=== PATIENT | female | born 1990 | race Caucasian/White ===

== ENCOUNTER 2018-02-03 07:07 | Emergency (ER) | payer OTHER ==
[~2018-02-03] VITALS: Ht 170.2 cm; Wt 90.7 kg
[~2018-02-03 07:07] MED LIST: BIRTH CONTROL PILLS; CEPH500 PO; CIPR500 PO; ESCI10; IBUP200; MEDR150I IM; MULVITA PO; NITR100CA PO; PHENA200 PO; RXPHEN200 PO; SULTRIDS PO; TRAZ50
[2018-02-03] MEDS ORDERED: CETI5 PO (08:04)
[2018-02-03] MEDS ORDERED: Zofran4 MG PO (08:27)
[2018-02-03] MEDS ORDERED: Norco 5-325 Ta1 EACH PO (08:27)
[2018-02-03] MEDS ORDERED: PSEU120ER PO (08:27)
== END 2018-02-03 09:04 | disposition home or self-care (01) ==
LOC: ER 07:07
DX: J02.9 Acute pharyngitis, unspecified (principal)
CPT/HCPCS: 87081; 87430; 99283

== ENCOUNTER 2018-03-23 08:42 | Emergency (ER) | payer OTHER ==
[~2018-03-23] VITALS: Ht 170.2 cm; Wt 90.7 kg
[~2018-03-23 08:42] MED LIST changes: +CETI5 PO; +Norco 5-325 Ta1 EACH PO; +PSEU120ER PO; +Zofran4 MG PO
[2018-03-23] MEDS ORDERED: PENVK500 PO (08:56)
== END 2018-03-23 09:20 | disposition home or self-care (01) ==
LOC: ER 08:42
DX: J02.9 Acute pharyngitis, unspecified (principal); F17.210 Nicotine dependence, cigarettes, uncomplicated; Z79.2 Long term (current) use of antibiotics
CPT/HCPCS: 96372; 99283; J1100; J1885

== ENCOUNTER → 2019-05-20 | Outpatient (CLI) | payer OTHER ==
[~2019-05-20] MED LIST changes: +PENVK500 PO
[2019-05-21 09:59] LABS: Candida species (DNA Probe) Positive (NEGATIVE); G. vaginalis (DNA Probe) Negative (NEGATIVE); T. vaginalis (DNA Probe) Negative (NEGATIVE)
[2019-05-22 13:06] LABS: HPV 16 Negative (Negative); HPV 18 Negative (Negative); HPV OTHER HR TYPES Negative (Negative)
== END ==
LOC: LAB 10:58 → LAB SHORT 10:58
PROVIDERS: Nurse Practitioner Family
DX: Z12.4 Encounter for screening for malignant neoplasm of cervix (principal); N89.8 Other specified noninflammatory disorders of vagina
CPT/HCPCS: 87480; 87510; 87624; 87660; G0145

== ENCOUNTER → 2019-06-20 | Outpatient (CLI) | payer OTHER | END | disposition home or self-care (01) | LOC: LAB SHORT 12:39 → LAB EV 12:39 | DX: N39.0 Urinary tract infection, site not specified (principal) | CPT/HCPCS: 87077; 87086; 87186 ==

== ENCOUNTER 2019-11-03 19:56 | Emergency (ER) | payer OTHER ==
[~2019-11-03] VITALS: Ht 170.2 cm; Wt 87.5 kg
[2019-11-03 20:38] LABS: BASOPHILS ABSOLUTE AUTO 0.02 K/mm3 (0.00-0.23); BASOPHILS PERCENT AUTO 0 % (0-2); EOSINOPHILS ABSOLUTE AUTO 0.29 K/mm3 (0.00-0.68); EOSINOPHILS PERCENT AUTO 4 % (0-6); Hematocrit 32.8 % (33.0-51.0); IMMATURE GRAN ABSOLUTE AUTO 0.03 K/mm3 (0.00-0.10); IMMATURE GRAN PERCENT AUTO 0 % (0-1); LYMPHOCYTES ABSOLUTE AUTO 1.08 K/mm3 (0.84-5.20); LYMPHOCYTES PERCENT AUTO 14 % (21-46); MONOCYTES ABSOLUTE AUTO 0.64 K/mm3 (0.16-1.47); MONOCYTES PERCENT AUTO 8 % (4-13); Mean Corpuscular HGB 32.1 pg (26.0-34.0); Mean Corpuscular HGB Conc 33.5 g/dL (31.5-36.5); Mean Corpuscular Volume 96 fL (80-100); Mean Platelet Volume 11.3 fL (9.1-12.4); NEUTROPHILS ABSOLUTE AUTO 5.75 K/mm3 (1.96-9.15); NEUTROPHILS PERCENT AUTO 74 % (41-73); Platelet Count 224 K/mm3 (150-400); RDW Coefficient Variation 12.6 % (11.7-14.2); RDW Standard Deviation 44.3 fL (35.1-46.3); Red Blood Cell Count 3.43 M/mm3 (3.80-5.20); White Blood Cell Count 7.81 K/mm3 (4.00-11.30)
[2019-11-03 20:57] LABS: Alanine Aminotransfer (ALT/SGP 13 U/L (12-78); Albumin, Blood 2.7 g/dL (3.4-5.0); Albumin/Globulin Ratio 0.6 (0.8-1.8); Alk Phos 96 U/L (50-136); Anion Gap 8 mmol/L (6-16); Aspartate Aminotrans (AST/SGOT 15 U/L (12-37); Bilirubin, Total 0.2 mg/dL (0.1-1.0); Blood Urea Nitrogen 3 mg/dL (8-24); CO2, Blood 22 mmol/L (21-32); Calcium, Blood 8.5 mg/dL (8.5-10.1); Chloride, Blood 108 mmol/L (98-108); Creatinine, Blood 0.38 mg/dL (0.40-1.00); Globulin, Blood 4.2 g/dL (2.2-4.0); Glomerular Filtration Rate >60 (60-); Glucose, Blood 79 mg/dL (70-99); Potassium, Blood 3.5 mmol/L (3.5-5.5); Sodium, Blood 138 mmol/L (136-145); Total Protein, Blood 6.9 g/dL (6.4-8.2)
[2019-11-03] MEDS ORDERED: PRED20 PO (22:40)
[2019-11-03] MEDS ORDERED: ALBU90OI INH (22:40)
== END 2019-11-03 22:56 | disposition home or self-care (01) ==
LOC: ER 19:56
PROVIDERS: Emergency Medicine
DX: O99.512 Diseases of the respiratory system complicating pregnancy, second trimester (principal); J45.909 Unspecified asthma, uncomplicated; O99.332 Smoking (tobacco) complicating pregnancy, second trimester; F17.210 Nicotine dependence, cigarettes, uncomplicated; Z3A.27 27 weeks gestation of pregnancy
CPT/HCPCS: 36415; 71260; 80053; 85025; 85379; 94640; 96360-59; 96361; 99285-25; J7120; J7512; Q9967

== ENCOUNTER 2020-01-28 04:50 | Inpatient (IN) | payer OTHER ==
[~2020-01-28] VITALS: Ht 170.2 cm; Wt 92.7 kg
[~2020-01-28 04:50] MED LIST changes: +ALBU90OI INH; +PRED20 PO
[2020-01-28 05:41] LABS: BASOPHILS ABSOLUTE AUTO 0.01 K/mm3 (0.00-0.23); BASOPHILS PERCENT AUTO 0 % (0-2); EOSINOPHILS ABSOLUTE AUTO 0.04 K/mm3 (0.00-0.68); EOSINOPHILS PERCENT AUTO 1 % (0-6); Hematocrit 33.9 % (33.0-51.0); Hemoglobin 11.3 g/dL (11.5-16.0); IMMATURE GRAN ABSOLUTE AUTO 0.03 K/mm3 (0.00-0.10); IMMATURE GRAN PERCENT AUTO 0 % (0-1); LYMPHOCYTES ABSOLUTE AUTO 0.85 K/mm3 (0.84-5.20); LYMPHOCYTES PERCENT AUTO 11 % (21-46); MONOCYTES ABSOLUTE AUTO 0.75 K/mm3 (0.16-1.47); MONOCYTES PERCENT AUTO 10 % (4-13); Mean Corpuscular HGB 30.7 pg (26.0-34.0); Mean Corpuscular HGB Conc 33.3 g/dL (31.5-36.5); Mean Corpuscular Volume 92 fL (80-100); Mean Platelet Volume 12.1 fL (9.1-12.4); NEUTROPHILS ABSOLUTE AUTO 5.76 K/mm3 (1.96-9.15); NEUTROPHILS PERCENT AUTO 78 % (41-73); Platelet Count 214 K/mm3 (150-400); RDW Coefficient Variation 13.5 % (11.7-14.2); RDW Standard Deviation 45.9 fL (35.1-46.3); Red Blood Cell Count 3.68 M/mm3 (3.80-5.20); White Blood Cell Count 7.44 K/mm3 (4.00-11.30)
--- NOTE | 2020-01-28 16:23 | NUR ---
REPORT TO SUSAN SOLOMON
--- NOTE | 2020-01-28 16:30 | NUR ---
ASSUMED PT CARE, RESTING IN BED, JUST WAS UP TO VOID. DECLINES ANYTHING FOR PAIN.
--- NOTE | 2020-01-28 19:17 | NUR ---
REPORT TO ONCOMING SHIFT, NO ACUTE CHANGES.
[2020-01-29 06:38] LABS: BASOPHILS ABSOLUTE AUTO 0.03 K/mm3 (0.00-0.23); BASOPHILS PERCENT AUTO 0 % (0-2); EOSINOPHILS ABSOLUTE AUTO 0.12 K/mm3 (0.00-0.68); EOSINOPHILS PERCENT AUTO 2 % (0-6); Hematocrit 28.6 % (33.0-51.0); Hemoglobin 9.3 g/dL (11.5-16.0); IMMATURE GRAN ABSOLUTE AUTO 0.05 K/mm3 (0.00-0.10); IMMATURE GRAN PERCENT AUTO 1 % (0-1); LYMPHOCYTES ABSOLUTE AUTO 1.95 K/mm3 (0.84-5.20); LYMPHOCYTES PERCENT AUTO 29 % (21-46); MONOCYTES ABSOLUTE AUTO 0.73 K/mm3 (0.16-1.47); MONOCYTES PERCENT AUTO 11 % (4-13); Mean Corpuscular HGB 30.2 pg (26.0-34.0); Mean Corpuscular HGB Conc 32.5 g/dL (31.5-36.5); Mean Corpuscular Volume 93 fL (80-100); NEUTROPHILS ABSOLUTE AUTO 3.93 K/mm3 (1.96-9.15); NEUTROPHILS PERCENT AUTO 58 % (41-73); Platelet Count 201 K/mm3 (150-400); RDW Coefficient Variation 13.8 % (11.7-14.2); RDW Standard Deviation 46.9 fL (35.1-46.3); Red Blood Cell Count 3.08 M/mm3 (3.80-5.20); White Blood Cell Count 6.81 K/mm3 (4.00-11.30)
--- NOTE | 2020-01-29 09:00 | NUR ---
MOTHER REMAINS ASLEEP. WILL ASSESS WHEN AWAKE. FATHER AWAKE AND CARING FOR BABY INDEPENDANTLY.
--- NOTE | 2020-01-29 13:40 | NUR ---
1300 DISCHARGE HOME STABLE. VERBALIZES UNDERSTANDING OF DC INSTRUCTIONS AND FOLLOW UP APPOINTMENTS. NO QUESTIONS OR CONCERNS.
== END 2020-01-29 13:05 | disposition home or self-care (01) | DRG 807 ==
LOC: OBS 04:50 → BC 04:50 → OBS 05:15 → BC 05:16
PROVIDERS: ADMIT Nurse Practitioner Obstetrics & Gynecology
PROC: 10E0XZZ Delivery of Products of Conception, External Approach (ICD-10-PCS; principal; 2020-01-28)
PROC: 10907ZC Drainage of Amniotic Fluid, Therapeutic from Products of Conception, Via Natural or Artificial Opening (ICD-10-PCS; 2020-01-28)
PROC: 3E0R3BZ Introduction of Anesthetic Agent into Spinal Canal, Percutaneous Approach (ICD-10-PCS; 2020-01-28)
DX: O99.824 Streptococcus B carrier state complicating childbirth (principal); Z37.0 Single live birth; Z3A.39 39 weeks gestation of pregnancy; O99.334 Smoking (tobacco) complicating childbirth; F17.200 Nicotine dependence, unspecified, uncomplicated; O99.42 Diseases of the circulatory system complicating childbirth; I34.0 Nonrheumatic mitral (valve) insufficiency; O35.9XX0 Maternal care for (suspected) fetal abnormality and damage, unspecified, not applicable or unspecified; O77.0 Labor and delivery complicated by meconium in amniotic fluid; O69.89X0 Labor and delivery complicated by other cord complications, not applicable or unspecified
CPT/HCPCS: 36415; 51702; 85025; 86850; 86900; 86901; J0290; J1885; J2001; J2210; J2590; J3010; J7120

== ENCOUNTER 2020-05-13 06:14 | Day surgery (SDC) | payer OTHER ==
[~2020-05-13] VITALS: Ht 170.2 cm; Wt 81.2 kg
[~2020-05-13 06:14] MED LIST changes: +ZYRTEC10 M2 PO
--- NOTE | 2020-05-13 07:10 | NUR ---
05/13/20 0710 Aundrea Juan 2 IV ATTEMPTS BY [facility], 1ST IN L HAND WAS PAINFUL FOR PATIENT AND ATTEMPT WAS STOPPED, 2ND IN LAC WAS SUCCESSFUL
--- NOTE | 2020-05-13 09:37 | NUR ---
05/13/20 0937 Melani Ventura PT REPORTED "MILDLY ACHEY BELLY" THAT WAS TOLERABLE DURING STEP DOWN. PT TOLERATED PO FLUIDS AND SNACKS WELL. PT ARRIVED TO STEP DOWN WITH SWELLING TO THE LEFT UPPER LIP. NO OPEN WOUNDS SEEN ON LIP. PT STATED THAT IT WAS TOLERABLE; RN EXPLAINED HOW SOMETIMES THE LIPS CAN GET "BUMPED INTO" DURING INTUBATION. RN WENT OVER DISCHARGE INSTRUCTIONS UNTIL ALL QUESTIONS WERE ANSWERED. PT WILL BE SENT HOME WITH WRITTEN COPIES AND RX. PT'S RIDE CALLED; MESSAGE LEFT.
== END 2020-05-13 09:42 | disposition home or self-care (01) ==
LOC: ORSCSDS 06:14
PROVIDERS: Obstetrics & Gynecology
PROC: 0UT74ZZ Resection of Bilateral Fallopian Tubes, Percutaneous Endoscopic Approach (ICD-10-PCS; principal; 2020-05-13 07:30)
DX: Z30.2 Encounter for sterilization (principal); Q50.5 Embryonic cyst of broad ligament; N80.3 Endometriosis of pelvic peritoneum
CPT/HCPCS: 88302; J0694; J1100; J1885; J2001; J2250; J2405; J2704; J3010; J7120

== ENCOUNTER → 2020-08-25 | Outpatient (CLI) | payer OTHER | END | disposition home or self-care (01) | LOC: LAB EV 17:47 → LAB SHORT 17:47 | DX: R06.00 Dyspnea, unspecified (principal); Z20.828 Contact with and (suspected) exposure to other viral communicable diseases | CPT/HCPCS: U0003 ==

== ENCOUNTER → 2022-04-17 | Outpatient (CLI) | payer OTHER ==
[2022-04-19 05:11] LABS: CHLAMYDIA TRACHOMATIS, NAA Negative (Negative)
== END | disposition home or self-care (01) ==
LOC: LAB SHORT 11:20
PROVIDERS: Physician Assistant
DX: N89.8 Other specified noninflammatory disorders of vagina (principal)
CPT/HCPCS: 87070; 87205; 87491; 87591

== ENCOUNTER → 2023-04-15 | Outpatient (CLI) | payer OTHER ==
[2023-04-16 10:39] LABS: Candida species (DNA Probe) Negative (NEGATIVE); G. vaginalis (DNA Probe) Positive (NEGATIVE); T. vaginalis (DNA Probe) Negative (NEGATIVE)
== END | disposition home or self-care (01) ==
LOC: LAB 13:50 → LAB SHORT 13:50
PROVIDERS: Family Medicine
DX: N89.8 Other specified noninflammatory disorders of vagina (principal)
CPT/HCPCS: 87480; 87510; 87660

== ENCOUNTER → 2024-08-06 | Outpatient (CLI) | payer OTHER | LOC: LAB 08:26 → LAB SHORT 08:26 | DX: L02.213 Cutaneous abscess of chest wall (principal) | CPT/HCPCS: 87070; 87075; 87205 ==

== ENCOUNTER → 2024-08-15 | Outpatient (CLI) | payer OTHER | LOC: LAB SHORT 10:27 → LAB 10:27 | DX: N39.0 Urinary tract infection, site not specified (principal) | CPT/HCPCS: 87086 ==

== ENCOUNTER → 2024-12-05 | Outpatient (CLI) | payer OTHER | LOC: LAB 13:00 → LAB SHORT 13:00 | DX: N39.0 Urinary tract infection, site not specified (principal) | CPT/HCPCS: 87086 ==

== ENCOUNTER 2025-02-26 06:03 | Day surgery (SDC) | payer OTHER ==
[2025-02-26] VITALS (8 sets, daily range): BP systolic 104–128; BP diastolic 77–97
[~2025-02-26] VITALS: Ht 170.2 cm; Wt 92.4 kg
[~2025-02-26 06:03] MED LIST changes: +HYDHCL25 PO; +MIRENA1 EAC3 VAG; +MONT10T PO
[2025-02-26] MEDS ORDERED: CeFAZolin Sodium 2,000 MG in NS 100 ML IV SCH (06:25)
[2025-02-26] MEDS ORDERED: Lactated Ringer's 1,000 ML IV SCH (06:25)
[2025-02-26] MEDS ORDERED: propofoL 20 ML IV ONE (06:55)
[2025-02-26] MEDS ORDERED: FentaNYL Citrate 50 MCG/ML 2 ML Injection ONE (06:56)
[2025-02-26] MEDS ORDERED: Bupivacaine 0.5% HCl 5 MG/ML 30MLVIAL ONE (06:57)
--- NOTE | 2025-02-26 07:00 | NUR ---
Ambulatory in Day Surgery Patient reports completing Chlorhexadine shower X2 prior to admission to hospital.Patient confirms NPO status and agrees with scheduled surgery. Pre-Op teaching done. Pt verbalizes understanding. History, Chart, Medications and Allergies reviewed before start of procedure.Patient States Post-Procedure ride home has been arranged.
[2025-02-26] MEDS ORDERED: CeFAZolin Sodium 2,000 MG VIAL ONE (07:03)
[2025-02-26] MEDS ORDERED: Midazolam HCl 1MG / ML 2ML Vial ONE (07:15)
[2025-02-26] MEDS ORDERED: Midazolam HCl 1MG / ML 2ML Vial IV ONE (07:15)
--- NOTE | 2025-02-26 07:21 | NUR ---
PT NOTED TO HAVE NEW ONSET PINK SPOTTED RASH ON RIGHT WRIST AND PINK LINE ON LEFT WRIST WEAR PT NAME BAND IS. PT STATES SHE HAS VERY SENSITIVE SKIN AND BREAKS OUT IN RASHES FREQUENTLY. STATES IT DOES NOT ITCH. DR RODRÍGUEZ AND [employer] BOTH VIEWED AREAS OF CONCERN.
[2025-02-26] MEDS ORDERED: Ketorolac Tromethamine 30mg Vial ONE (07:27)
[2025-02-26] MEDS ORDERED: Dexamethasone Sod Phos 10 MG/ML 1ML VIAL ONE (07:27)
[2025-02-26] MEDS ORDERED: Ondansetron HCl 2 MG / ML 2ML Vial ONE (07:27)
[2025-02-26] MEDS ORDERED: HYDROcodone 5-APAP 325 TAB PO PRN (08:25)
--- NOTE | 2025-02-26 09:18 | NUR ---
Patient up to Ambulate independently. Gait steady. Discharge instructions reviewed with patient. Patient verbalizes understanding. Copy given to patient to take home, [facility]. Patient States Post-Procedure ride home has been arranged. Discharged via wheelchair to private car for ride home.
== END 2025-02-26 09:18 | disposition home or self-care (01) ==
LOC: ORSCMMR 06:03 → ORD 07:30 → ORSCMMR 07:30
PROVIDERS: Surgery
PROC: 0HBU0ZX Excision of Left Breast, Open Approach, Diagnostic (ICD-10-PCS; principal; 2025-02-26 07:30)
DX: N60.82 Other benign mammary dysplasias of left breast (principal); J45.909 Unspecified asthma, uncomplicated; F17.290 Nicotine dependence, other tobacco product, uncomplicated; F32.A Depression, unspecified; F43.10 Post-traumatic stress disorder, unspecified; E66.9 Obesity, unspecified; Z68.31 Body mass index [BMI] 31.0-31.9, adult; Z79.899 Other long term (current) drug therapy
CPT/HCPCS: 88305; A9270; J0690; J1100; J1885; J2250; J2405; J2704; J3010; J7120